=== PATIENT | female | born 2000 | race Two or more races ===

== ENCOUNTER 2022-06-14 07:59 | Outpatient (CLI) | payer OTHER ==
[~2022-06-14 07:59] MED LIST: PRENATABS RX T1 EACH PO
== END 2022-06-14 09:32 | disposition home or self-care (01) ==
LOC: PRENATAL 07:59
PROVIDERS: ATTEND Obstetrics & Gynecology Maternal & Fetal Medicine
DX: O35.9XX0 Maternal care for (suspected) fetal abnormality and damage, unspecified, not applicable or unspecified (principal); O35.3XX0 Maternal care for (suspected) damage to fetus from viral disease in mother, not applicable or unspecified; Z3A.20 20 weeks gestation of pregnancy

== ENCOUNTER 2022-07-15 12:32 | Inpatient (IN) | payer OTHER ==
[~2022-07-15] VITALS: Ht 157.5 cm; Wt 73.0 kg
--- NOTE | 2022-07-15 12:46 | NUR ---
PTE REFIERE DOLOR DE ESPALDA BAJA CUADRANTE INFERIOR DERECHA CON RADIACIONA AREA PELVICA DESDE ESTA MANANA.
--- NOTE | 2022-07-15 15:47 | NUR ---
PACIENTE EVALUADA POR DRA ATKINSON QUIEN [place] [facility],RN JIMENEZ LE ORIENTA A PACIENTE SOBRE EL MISMO Y VERBALIZA ENTENDER, LE COLECTA MUESTRAS DE LABORATORIO Y LE CANALIZA BAJO MEDIDAS ASEPTICAS, LE ADMINISTRA MED MARTY ORDEN. PENDIENTE ESTUDIO DE SONO
== END 2022-07-18 13:57 | disposition home or self-care (01) | DRG 832 ==
LOC: EMR PED 12:32 → ER 12:41 → EMR PED 12:41 → OB/GYN 20:09
PROVIDERS: ADMIT Obstetrics & Gynecology; ATTEND Obstetrics & Gynecology
PROC: BT43ZZZ Ultrasonography of Bilateral Kidneys (ICD-10-PCS; principal; 2022-07-15)
PROC: BY4CZZZ Ultrasonography of Second Trimester, Single Fetus (ICD-10-PCS; 2022-07-15)
PROC: 4A1HXCZ Monitoring of Products of Conception, Cardiac Rate, External Approach (ICD-10-PCS; 2022-07-15)
DX: O23.02 Infections of kidney in pregnancy, second trimester (principal); N12 Tubulo-interstitial nephritis, not specified as acute or chronic; Z3A.24 24 weeks gestation of pregnancy; Z20.822 Contact with and (suspected) exposure to COVID-19; B96.20 Unspecified Escherichia coli [E. coli] as the cause of diseases classified elsewhere

== ENCOUNTER 2022-09-12 08:24 | Outpatient (CLI) | payer OTHER | END 2022-09-12 10:15 | disposition home or self-care (01) | LOC: PRENATAL 08:24 | PROVIDERS: ATTEND Obstetrics & Gynecology Maternal & Fetal Medicine | DX: O26.849 Uterine size-date discrepancy, unspecified trimester (principal); O36.5990 Maternal care for other known or suspected poor fetal growth, unspecified trimester, not applicable or unspecified; O36.8199 Decreased fetal movements, unspecified trimester, other fetus; Z3A.32 32 weeks gestation of pregnancy ==

== ENCOUNTER 2022-09-20 10:12 | Outpatient (CLI) | payer OTHER | END 2022-09-20 12:34 | disposition home or self-care (01) | LOC: PRENATAL 10:12 | PROVIDERS: ATTEND Obstetrics & Gynecology Maternal & Fetal Medicine | DX: O36.8199 Decreased fetal movements, unspecified trimester, other fetus (principal); O36.5990 Maternal care for other known or suspected poor fetal growth, unspecified trimester, not applicable or unspecified; Z3A.34 34 weeks gestation of pregnancy ==

== ENCOUNTER 2022-09-27 08:24 | Outpatient (CLI) | payer OTHER | END 2022-09-27 10:24 | disposition home or self-care (01) | LOC: PRENATAL 08:24 | PROVIDERS: ATTEND Obstetrics & Gynecology Maternal & Fetal Medicine | DX: O36.8199 Decreased fetal movements, unspecified trimester, other fetus (principal); O36.5990 Maternal care for other known or suspected poor fetal growth, unspecified trimester, not applicable or unspecified; Z3A.35 35 weeks gestation of pregnancy ==

== ENCOUNTER 2022-10-11 08:51 | Outpatient (CLI) | payer OTHER | END 2022-10-11 09:51 | disposition home or self-care (01) | LOC: PRENATAL 08:51 | PROVIDERS: ATTEND Obstetrics & Gynecology Maternal & Fetal Medicine | DX: O36.8199 Decreased fetal movements, unspecified trimester, other fetus (principal); O36.5990 Maternal care for other known or suspected poor fetal growth, unspecified trimester, not applicable or unspecified; Z3A.36 36 weeks gestation of pregnancy ==

== ENCOUNTER 2022-10-11 13:33 | Inpatient (IN) | payer OTHER ==
[~2022-10-11] VITALS: Ht 160 cm; Wt 2.3 kg
[2022-10-16] MEDS ORDERED: SURFAK240 M1 PO (10:55)
[2022-10-16] MEDS ORDERED: IBU800 MG PO (10:55)
== END 2022-10-16 13:58 | disposition home or self-care (01) | DRG 788 ==
LOC: OBS/DEL 13:33 → LDR 10-12 10:27 → OB/GYN 10-12 10:27 → LDR 10-12 17:23 → OB/GYN 10-13 03:20
PROVIDERS: ADMIT Obstetrics & Gynecology; ATTEND Obstetrics & Gynecology
PROC: 4A1HXCZ Monitoring of Products of Conception, Cardiac Rate, External Approach (ICD-10-PCS; 2022-10-12)
PROC: BY4FZZZ Ultrasonography of Third Trimester, Single Fetus (ICD-10-PCS; 2022-10-12)
PROC: 10D00Z1 Extraction of Products of Conception, Low, Open Approach (ICD-10-PCS; principal; 2022-10-13)
DX: O36.8130 Decreased fetal movements, third trimester, not applicable or unspecified (principal); O36.5930 Maternal care for other known or suspected poor fetal growth, third trimester, not applicable or unspecified; Z3A.36 36 weeks gestation of pregnancy; Z37.0 Single live birth; Z20.822 Contact with and (suspected) exposure to COVID-19